=== PATIENT | male | born 1995 | race Caucasian/White ===

== ENCOUNTER → 2019-12-17 | Outpatient (CLI) | payer OTHER | LOC: RAD 10:15 | DX: M25.531 Pain in right wrist (principal); M79.641 Pain in right hand ==

== ENCOUNTER → 2021-04-21 | Outpatient (CLI) | payer OTHER ==
[2021-04-21 17:26] LABS: BASO # 0.05 K/mm3 (0.02-0.10); EOS # 0.14 K/mm3 (0.04-0.40); EOS % 3.1 % (0.0-4.0); HEMATOCRIT 43.6 % (42.0-52.0); HEMOGLOBIN 15.1 g/dL (13.5-18.0); LYMPH# 1.62 K/mm3 (1.50-4.00); MEAN CELL VOLUME 86 fl (78-100); MEAN CORPUSCULAR HEMOGLOBIN 30 pg (27-31); MEAN CORPUSCULAR HGB CONC 35 g/dL (33-37); MEAN PLATELET VOLUME 8.9 fl (7.4-10.4); MONO # 0.75 K/mm3 (0.20-0.80); PLATELET COUNT 253 K/mm3 (130-400); RED BLOOD COUNT 5.06 M/mm3 (4.20-5.60); RED CELL DISTRIBUTION WIDTH 12.9 % (11.5-14.5); WHITE BLOOD COUNT 4.5 K/mm3 (4.8-10.8)
[2021-04-21 17:51] LABS: MONOCYTE 11 % (3-10); NEUTROPHILS 37 % (42-75)
[2021-04-21 17:52] LABS: LYMPHOCYTE 49 % (20-51)
[2021-04-21 20:29] LABS: ALBUMIN 4.4 g/dL (3.5-5.0)
[2021-04-21 20:30] LABS: POTASSIUM 4.1 mmol/L (3.5-5.1)
[2021-04-21 20:31] LABS: CALCIUM 9.1 mg/dL (8.3-10.5)
[2021-04-21 20:32] LABS: TOTAL PROTEIN 6.6 g/dL (6.4-8.3)
[2021-04-21 20:34] LABS: TOTAL BILIRUBIN 0.3 mg/dL (0.2-1.2)
[2021-04-26 09:14] LABS: EPSTEIN-BARR VIRUS DNA LOG Not Detected (())
== END ==
LOC: LAB 17:16
PROVIDERS: Family Medicine
DX: R50.9 Fever, unspecified (principal); R53.83 Other fatigue

== ENCOUNTER → 2021-12-29 | Outpatient (CLI) | payer OTHER ==
[2021-12-29 17:40] LABS: BASO # 0.06 K/mm3 (0.02-0.10); EOS # 0.17 K/mm3 (0.04-0.40); EOS % 1.9 % (0.0-4.0); HEMATOCRIT 42.3 % (42.0-52.0); HEMOGLOBIN 14.8 g/dL (13.5-18.0); LYMPH# 3.39 K/mm3 (1.50-4.00); MEAN CELL VOLUME 85 fl (78-100); MEAN CORPUSCULAR HEMOGLOBIN 30 pg (27-31); MEAN CORPUSCULAR HGB CONC 35 g/dL (33-37); MEAN PLATELET VOLUME 8.5 fl (7.4-10.4); MONO # 0.57 K/mm3 (0.20-0.80); NEU # 4.74 K/mm3 (1.40-6.50); PLATELET COUNT 308 K/mm3 (130-400); RED BLOOD COUNT 4.99 M/mm3 (4.20-5.60); RED CELL DISTRIBUTION WIDTH 12.9 % (11.5-14.5)
[2021-12-29 17:47] LABS: ALBUMIN 4.3 g/dL (3.5-5.0); POTASSIUM 3.5 mmol/L (3.5-5.1)
[2021-12-29 17:48] LABS: CALCIUM 8.9 mg/dL (8.3-10.5)
[2021-12-29 17:49] LABS: TOTAL PROTEIN 6.5 g/dL (6.4-8.3)
[2021-12-29 17:51] LABS: TOTAL BILIRUBIN 0.3 mg/dL (0.2-1.2)
== END ==
LOC: LAB 17:05
PROVIDERS: Family Medicine
DX: J98.11 Atelectasis (principal); E66.9 Obesity, unspecified